=== PATIENT | male | born 1955 | race Caucasian/White ===

== ENCOUNTER 2024-06-13 11:13 | Emergency (ER) | payer MEDICARE, MEDICAID ==
[~2024-06-13] VITALS: Ht 190.5 cm; Wt 107.0 kg
[2024-06-13 11:28] VITALS: TEMP 100.5
[2024-06-13 12:27] LABS: BASOPHILS % (AUTO) 0.1 % (0-1); EOSINOPHILS % (AUTO) 0.2 % (0-6); HEMATOCRIT 37.1 % (42.0-52.0); HEMOGLOBIN 12.6 g/dl (14.0-17.9); LYMPHOCYTES # (AUTO) 0.7 X10'3 (1.1-4.8); LYMPHOCYTES % (AUTO) 5.3 % (21-51); MEAN CORPUSCULAR HEMOGLOBIN 30.9 PG (27.0-31.0); MEAN CORPUSCULAR HGB CONC 33.9 g/dL (33.0-36.5); MEAN CORPUSCULAR VOLUME 91.1 FL (78-98); MEAN PLATELET VOLUME 7.6 FL (7.4-10.4); MONOCYTES # (AUTO) 0.7 X10'3 (0-0.9); MONOCYTES % (AUTO) 5.3 % (2-12); NEUTROPHILS # (AUTO) 11.6 X10'3 (1.8-7.7); NEUTROPHILS % (AUTO) 89.1 % (42-75); PLATELET COUNT 144 X10'3 (140-440); RED BLOOD COUNT 4.08 X10'6 (4.70-6.10); RED CELL DISTRIBUTION WIDTH 14.3 % (11.5-14.5); WHITE BLOOD COUNT 13.1 X10'3 (4.5-11.0)
[2024-06-13 12:39] LABS: INR 1.2 INR; PROTHROMBIN TIME 12.4 SECONDS (9.0-12.0)
[2024-06-13 12:51] LABS: ALBUMIN 3.2 G/DL (3.4-5.0); ANION GAP 9 (8-16); BLOOD UREA NITROGEN 16 MG/DL (7-18); BUN/CREATININE RATIO 10.6 (10.0-20.0); CALCIUM 8.4 MG/DL (8.5-10.1); CHLORIDE 102 MMOL/L (99-107); CREATININE 1.51 MG/DL (0.60-1.10); GLUCOSE 163 MG/DL (70-104); POTASSIUM 3.9 MMOL/L (3.5-5.1); PRO BRAIN NATRIURETIC PEPTIDE 1144 PG/ML (0-125); SODIUM 135 MMOL/L (135-145); TOTAL CARBON DIOXIDE 24.5 MMOL/L (24-32); eCRCL 54 ML/MIN; eGFR 46 ML/MIN
[2024-06-13] MEDS ORDERED: iohexol 350MG/ML 100ml bottle IV ONE ×2 (12:58→16:35)
[2024-06-13] MEDS: normal saline 500ml IV soln 500 ML IV ONE (13:33)
[2024-06-13] MEDS: azithromycin 250mg tablet PO ONE (15:45)
[2024-06-13] MEDS: CefTRIAXone 2gm/D5W 50ml BAG 50 ML IV ONE (15:45)
[2024-06-13] MEDS: midazolam 1 mg/ML 2ml injection IV ONE (17:14)
[2024-06-13] MEDS: LORazepam 2 mg/ml vial IV ONE (17:36)
[2024-06-13] MEDS ORDERED: methylPREDNISolone sod succ 125mg/2ml vial IV ONE (17:55)
[2024-06-13] MEDS ORDERED: AZIT-164 PO ×2 (18:49→19:44)
[2024-06-13] MEDS ORDERED: AMOX-117 PO ×2 (18:50→19:44)
[2024-06-13 19:58] VITALS: BP 131/63; PULSE 85; RESP 18; O2SAT 93
== END 2024-06-13 20:01 | disposition home or self-care (01) ==
LOC: ER 11:14
DX: J18.9 Pneumonia, unspecified organism (principal); C34.90 Malignant neoplasm of unspecified part of unspecified bronchus or lung; Z20.822 Contact with and (suspected) exposure to COVID-19
CPT/HCPCS: 36415; 71045; 71275; 80048; 83605; 83880; 84484; 85025; 85610; 87040; 87502; 87503; 87811; 93005; 96365; 96375; 99285; A6590; J0696; J2060; J2250; J7030; J7040; Q9967